=== PATIENT | male | born 2005 | race Two or more races ===

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

== ENCOUNTER 2025-04-30 16:24 | Outpatient (AMB) | payer MEDICAID, SELFPAY ==
--- NOTE | 2025-04-30 16:20 | A.OFFPC_ITS ---
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: No Was dental information given to patient?: Patient has dentist HPI HPI Comments History of Present Illness Details This is an 20-year-old Cuban-speaking male who presents today for his annual exam. Since his last appointment he was diagnosed with anxiety and ADHD. He is prescribed Vyvanse and fluoxetine by Psychiatry. 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 He agrees to influenza vaccine today. Denies smoking, drug and alcohol use. Per transfer records last tetanus vaccination was 07/14/2021. No drugs or alcohol. Nonsmoker. Patient agreeable to screening for STIs including HIV testing. ROS: Constitutional: No unexplained weight loss, fever, chills, fatigue or night sweats. Eyes: No vision changes, blurry vision, double vision, eye pain, eye redness, eye discharge. ENT: No hearing loss, sneezing, congestion, runny nose or sore throat. Respiratory: No shortness of breath, cough or sputum production. Cardiovascular: No chest pain, chest pressure or chest discomfort. No palpitations or pedal edema. Gastrointestinal: No anorexia, nausea, vomiting or diarrhea. No abdominal pain or blood in stool. Genitourinary: No dysuria, hematuria, urinary frequency. No swelling/pain/lumps in the groin/testicles. Neurologic: No headache, dizziness, syncope, unilateral weakness, ataxia, numbness or tingling in the extremities. Musculoskeletal: No muscle pain, back pain, joint pain or swelling. Hematologic/Lymphatics: No bleeding or bruising. No painful lymph nodes. Skin: No rash Endocrine: No cold or heat intolerance. No polyuria or polydipsia. Psychiatric: Denies depression. See HPI. Physical exam: Constitutional: Alert, in no distress. Head: Normocephalic. Eyes: Pupils are equal, round and reactive to light. Extraocular muscles intact. Ear, Nose and Throat: Canals clear. TMs normal. Normal nasal mucosa. No nasal discharge. No oral lesions. Neck: Supple, Full range of motion. No lymphadenopathy. No palpable thyroid masses. Respiratory: Clear to auscultation. Cardiovascular: S1 S2 regular. No murmurs. Gastrointestinal: Abdomen soft, non-tender, non-distended. Normal bowel sounds. No palpable masses. Genitourinary: Patient deferred exam today. Neurologic: No focal neurological deficits. Symmetric patellar reflexes. Moves all extremities spontaneously. Skin: No rashes Musculoskeletal: No gross deformities. Normal range of motion. Extremities: Warm and well perfused. No clubbing, cyanosis or edema. 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 1. Little interest or pleasure in doing things: not at all 2. Feeling down, depressed, or hopeless: not at all 3. Trouble falling or staying asleep, or sleeping too much: not at all 4. Feeling tired or having little energy: not at all 5. Poor appetite or overeating: not at all 6. Feeling bad about yourself - or that you are a failure or have let yourself or your family down: not at all 7. Trouble concentrating on things, such as reading the newspaper or watching television: not at all 8. Moving or speaking so slowly that other people could have noticed. Or the opposite - being so fidgety or restless that you have been moving around a lot more than usual: not at all 9. Thoughts that you would be better off or of hurting yourself in some way: not at all Total score: 0 Depression Screening Interpretation: Negative Depression Screening Done: Yes 46830 - PHQ-9 Billing: Yes Source: Developed by Drs. Barrington Thompson, Sri Angelo, Zay Pike and colleagues, with an educational edd from [employer]. Thrive Questionnaire Date Thrive assessed: 04/30/25 I am a: Patient What is your living situation today?: I have a steady place to live Within the past 12 months, did the food you bought not last and you didn't have the money to get more?: Never true Within the past 12 months, did you worry whether your food would run out before you got money to buy more?: Never true Do you have trouble paying for medicines?: No Do you have trouble getting transportation to medical appointments?: No Do you have trouble paying your heating and electricity bill?: No Do you have trouble taking care of your child, family member or friend?: No Do you have trouble with day-to-day activities such as bathing, preparing meals, shopping, managing finances, etc.?: No Are you currently unemployed and looking for a job?: No Please select the resources that you would like help with: None Currently or been in a relationship where the following occur: No concerns reported THRIVE Score: 0 AUDIT C Alcohol Use Questionnaire (AUDIT-C) 1. How often do you have a drink containing alcohol?: Never 3. How often do you have six or more drinks on one occasion?: Never Total Score: 0 ABDIFATAH-7 AMB Questionnaire ABDIFATAH-7 Date ABDIFATAH - 7 assessed: 04/30/25 Feeling nervous, anxious, or on edge: 0 = Not at all Not being able to stop or control worryin = Not at all Worrying too much about different things: 0 = Not at all Trouble relaxin = Not at all Being so restless that it is hard to sit still: 0 = Not at all Becoming easily annoyed or irritable: 0 = Not at all Feeling afraid as if something awful might happen: 0 = Not at all Total ABDIFATAH-7 score (0-4 normal; 5-9 mild; 10-14 moderate; 15-21 severe): 0 Source: Developed by Drs. Barrington Thompson, Sri Angelo, Zay Pike and colleagues, with an educational edd from [employer]. ABDIFATAH-7 Assessment Billing ABDIFATAH-7 Assessment Tool: ABDIFATAH-7 Assessment 68958 Physical exam (Primary Care) Vital Signs: Last Vital Signs Temp 97.9 F 04/30/25 16:28 Pulse 63 04/30/25 16:28 Resp 14 04/30/25 16:28 BP 100/62 04/30/25 16:28 Pulse Ox 98 04/30/25 16:28 Oxygen Delivery Method Room Air 04/30/25 16:28 BMI result Body Mass Index 23.0 Tobacco/Smoking Status: Tobacco use Status Tobacco use date assessed 04/30/25 04/30/25 16:23 Patient Tobacco Use Status Never used Tobacco 04/30/25 16:23 e-Cigarette/Vaping Use Never Used 04/30/25 16:23 Depression Screening Interpretation: Negative Thrive Assessment: Date of Thrive Assessment Date Thrive assessed 04/27/24 04/30/25 16:23 Currently or been in a relationship where the following occur: No concerns reported Office Procedures Flu Questionnaire Does the patient have a severe egg allergy?: No Does the patient have severe life threatening allergies?: No Does the patient have a fever or illness today?: No Has the patient ever had Guillain-Bingham Syndrome?: No Has the patient ever had any past reaction to a flu shot?: No Immunizations Fluarix [id number] (PF) 45 mcg (15 mcg x 3)/0.5 mL IM syringe Performing Provider: TORI Coreas Performing Location: [facility] [place] [facility] Administered by: Christine Ramirez CMA on 04/30/25 16:48 Dose Route Admin Location Dispensed Lot Number Expiration Date NDC Kerrick Kleaner Operator 0.5 mL IM Left Deltoid 0.5 mL [id number] 11/06/25 67056-105-06 [employer] VIS Given Date VIS Provided VIS Publication Date 04/30/25 Single Vaccine 24 Eligibility Eligibility Date Funding Source Not VFC Eligible 04/30/25 Private Coding Level of Care Code Est Pt Prev Care 18-39y(72738) Diagnoses Routine physical examination Z00.00 Additional Codes ABDIFATAH-7 Assessment Billing - ABDIFATAH-7 Assessment Tool: ABDIFATAH-7 Assessment 23063 ([id number]) PHQ-9 - 83334 - PHQ-9 Billing: Yes ([id number]) Assessment & Plan Assessment & Plan (1) Routine physical examination: Code(s): Z00.00 - Encounter for general adult medical examination without abnormal findings Category: Medical Plan Patient is seen today for a routine physical. As part of this visit we reviewed the following issues, which are considered and essential part of preventative health in this age group: - Blood pressure screening - Cholesterol screening - Nutritional and exercise counseling - Counseling of injury prevention including fire prevention, smoke alarms and seat belt usage - Screening for depression - Prevention of and/or testing for infectious diseases - Recommendations about immunizations - Recommendation of an eye exam up-to-date - Screening for substance abuse Schedule physical exam in 1 year. Orders: Orders Lipid Panel Today Z00.00 - Encounter for general adult medical examination without abnormal findings, Z13.6 - Encounter for screening for cardiovascular disorders Complete Blood Count no Diff Today Z00.00 - Encounter for general adult medical examination without abnormal findings, Z13.6 - Encounter for screening for cardiovascular disorders Comprehensive Met. Panel Today Z00.00 - Encounter for general adult medical examination without abnormal findings, Z13.6 - Encounter for screening for cardiovascular disorders Influenza [id number] Immunization Today Z23 - Encounter for immunization Hepatitis C Antibody Today Z20.2 - Contact with and (suspected) exposure to infections with a predominantly sexual mode of transmission HIV Ab/Ag Today Z20.2 - Contact with and (suspected) exposure to infections with a predominantly sexual mode of transmission Syphilis Screen Today Z20.2 - Contact with and (suspected) exposure to infections with a predominantly sexual mode of transmission CT NG by PCR Urine Today Z20.2 - Contact with and (suspected) exposure to infections with a predominantly sexual mode of transmission
[2025-04-30 16:28] VITALS: BP 100/62; PULSE 63; RESP 14; TEMP 36.6; O2SAT 98; BMI 23.0
== END 2025-04-30 16:50 | disposition home or self-care (01) ==
LOC: HO.HMCFM 16:24
PROVIDERS: PCP Physician Assistant Medical; Visit Provider Physician Assistant Medical
DX: Z00.00 Encounter for general adult medical examination without abnormal findings (principal); Z23 Encounter for immunization

== ENCOUNTER → 2025-04-30 16:24 | Outpatient (BNVA) | payer MEDICAID, SELFPAY | PROVIDERS: PCP Physician Assistant Medical; Visit Provider Physician Assistant Medical | DX: Z00.00 Encounter for general adult medical examination without abnormal findings (principal); Z23 Encounter for immunization; F41.9 Anxiety disorder, unspecified; F90.9 Attention-deficit hyperactivity disorder, unspecified type; Z79.899 Other long term (current) drug therapy; Z13.31 Encounter for screening for depression; Z13.39 Encounter for screening examination for other mental health and behavioral disorders | CPT/HCPCS: 90471; 90656; 96127; 99395 ==